=== PATIENT | male | born 1980 | race Caucasian/White ===

== ENCOUNTER 2016-10-16 21:38 | Emergency (ER) | payer SELFPAY ==
[~2016-10-16] VITALS: Ht 188 cm; Wt 94.0 kg
[2016-10-17 02:32] VITALS: BP 128/60
[2016-10-17] MEDS ORDERED: PREDNISONE 20MG TABLET PO SCH (03:00)
== END 2016-10-17 03:33 | disposition home or self-care (01) ==
LOC: ER 21:38
DX: L23.9 Allergic contact dermatitis, unspecified cause (principal)
CPT/HCPCS: 99283; J7512